=== PATIENT | female | born 1995 | race Native Hawaiian/Other Pacific Islander ===

== ENCOUNTER 2021-08-21 04:20 | Emergency (ER) | payer OTHER ==
[~2021-08-21] VITALS: Ht 165.1 cm; Wt 56.7 kg
[2021-08-21 04:27] VITALS: TEMP 98.4
[2021-08-21 05:12] LABS: PLATELET COUNT 325 K/uL (152-353)
[2021-08-21 05:16] LABS: POTASSIUM 3.4 mmol/L (3.6-5.2)
[2021-08-21 06:37] VITALS: BP 130/77
== END 2021-08-21 06:43 | disposition home or self-care (01) ==
LOC: ED 04:20
PROVIDERS: Hospitalist
DX: R10.84 Generalized abdominal pain (principal); K27.9 Peptic ulcer, site unspecified, unspecified as acute or chronic, without hemorrhage or perforation; R11.2 Nausea with vomiting, unspecified; N83.292 Other ovarian cyst, left side; N83.291 Other ovarian cyst, right side
CPT/HCPCS: 36415; 80053; 80320; 81002; 81025; 83690; 85027; 96360; 96374; 96375; 99284; J1885; J2405; J3490; Q9963